=== PATIENT | male | born 1955 | race Caucasian/White ===

== ENCOUNTER 2023-09-22 02:50 | Outpatient (CLI) | payer OTHER, SELFPAY | END 2023-09-22 02:51 | disposition home or self-care (01) | LOC: AMB 09-24 02:38 | PROVIDERS: Visit Provider Family Medicine | DX: R42 Dizziness and giddiness (principal); I62.00 Nontraumatic subdural hemorrhage, unspecified; R53.83 Other fatigue | CPT/HCPCS: A0425; A0427 ==